=== PATIENT | male | born 1975 | race Caucasian/White ===

== ENCOUNTER 2019-03-01 16:01 | Emergency (ER) | payer SELFPAY ==
[~2019-03-01] VITALS: Ht 160 cm; Wt 85.8 kg
--- NOTE | 2019-03-01 17:10 | NUR ---
DAPHNIE FROM THE STREETS C/O L LEG INJURY/DEFORMITY, 100MCG FENTANYL AND 4MG ZOFRAN IV GIVEN CONVENTIONAL MACHINIST. PT AAOX4, VSS. DENIES ANY OTHER DISCOMFORT. PT SEEN & EVAL'D BY DR. TAVARES. WILL CONT TO MONITOR.
[2019-03-01] MEDS ORDERED: FENTANYL PF 100MCG/2ML AMPUL ONE (19:23)
[2019-03-01] MEDS ORDERED: FENTANYL PF 100MCG/2ML AMPUL IV ONE (19:30)
--- NOTE | 2019-03-01 20:28 | NUR ---
Patient discharged to home in stable condition. Written and verbal after care instructions given. Patient verbalizes understanding of instruction. IV removed. Catheter intact and site benign. Pressure and 4x4 applied to site. No bleeding noted.
[2019-03-01 21:24] VITALS: BP 128/80
== END 2019-03-01 21:24 | disposition home or self-care (01) ==
LOC: ER 16:11
DX: S82.252A Displaced comminuted fracture of shaft of left tibia, initial encounter for closed fracture (principal); S82.452A Displaced comminuted fracture of shaft of left fibula, initial encounter for closed fracture; V19.9XXA Pedal cyclist (driver) (passenger) injured in unspecified traffic accident, initial encounter; Y93.89 Activity, other specified; Y92.488 Other paved roadways as the place of occurrence of the external cause; Y99.8 Other external cause status
CPT/HCPCS: 29505; 73560; 73590; 73600; 96374; 99283; J3010